=== PATIENT | male | born 1965 | race Caucasian/White ===

== ENCOUNTER 2017-12-22 00:05 | Observation (INO) | payer OTHER ==
[2017-12-22] VITALS (7 sets, daily range): BP systolic 115–147; BP diastolic 73–94; PULSE 87–99; RESP 19–21; TEMP 97.4–98.5; O2SAT 92–99
[~2017-12-22] VITALS: Ht 172.7 cm; Wt 81.4 kg
[~2017-12-22 00:05] MED LIST: ACETAMINOPHEN 325 MG TAB PO PRN; FLUMAZENIL 0.5 MG/5 ML VIAL IV PUSH PRN; LORazepam 1 MG TAB PO PRN; LORazepam 2 MG/ML VIAL IV PUSH PRN; ONDANSETRON HCL 4 MG/2 ML VIAL IVP PRN; POTASSIUM CHLORIDE 20 MEQ CONTROLLED RELEASE TAB PO ONE
[2017-12-22] MEDS: HEPARIN SODIUM - SQ 10,000 UNITS/ML VIAL SQ SCH ×4 (00:57→21:47)
[2017-12-22] MEDS: SODIUM CHLOR 0.9% 1000 ML INJ 1,000 ML IV SCH ×3 (00:57→09:59)
[2017-12-22] MEDS: SODIUM CHLORIDE 0.9% FLUSH 10 ML FLUSH IV FLUSH PRN ×2 (00:58→05:29)
[2017-12-22] MEDS: SODIUM CHLORIDE 0.9% FLUSH 10 ML FLUSH IV FLUSH SCH ×2 (08:16→19:58)
[2017-12-22 08:50] LABS: BASOPHIL % 0.3 % (0.0-2.0); EOSINOPHIL # 0.1 TH/MM3 (0-0.4); EOSINOPHIL % 1.7 % (0.0-4.0); HEMATOCRIT 32.5 % (39.0-51.0); HEMOGLOBIN 11.5 GM/DL (13.0-17.0); LYMPH % 10.6 % (9.0-44.0); LYMPHOCYTE # 0.8 TH/MM3 (1.0-4.8); MEAN CELL VOLUME 96.2 FL (80.0-100.0); MEAN CORPUSCULAR HEMOGLOBIN 34.1 PG (27.0-34.0); MEAN CORPUSCULAR HGB CONC 35.4 % (32.0-36.0); MEAN PLATELET VOLUME 9.2 FL (7.0-11.0); MONO % 9.4 % (0.0-8.0); MONOCYTE # 0.7 TH/MM3 (0-0.9); PLATELET COUNT 87 TH/MM3 (150-450); RED BLOOD COUNT 3.38 MIL/MM3 (4.50-5.90); RED CELL DISTRIBUTION WIDTH 14.8 % (11.6-17.2); WHITE BLOOD COUNT 7.6 TH/MM3 (4.0-11.0)
[2017-12-22 09:02] LABS: CHLORIDE 104 MEQ/L (98-107); SODIUM (NA) 138 MEQ/L (136-145)
[2017-12-22] MEDS: FOLIC ACID 1 MG TAB PO SCH (09:02)
[2017-12-22] MEDS: FAMOTIDINE 20 MG TAB PO SCH ×2 (09:02→19:58)
[2017-12-22] MEDS: MULTIVITAMINS/MINERALS THERAPEUTIC TAB PO SCH (09:02)
[2017-12-22] MEDS: THIAMINE HCL 100 MG TAB PO SCH (09:02)
[2017-12-22] MEDS: LORazepam 2 MG TAB PO PRN ×2 (09:02→19:58)
[2017-12-22 09:06] LABS: CALCIUM 7.8 MG/DL (8.5-10.1)
[2017-12-22 09:07] LABS: ALBUMIN 3.2 GM/DL (3.4-5.0); BICARBONATE 22.9 MEQ/L (21.0-32.0); BLOOD UREA NITROGEN 16 MG/DL (7-18); GLUCOSE,RANDOM 72 MG/DL (74-106)
[2017-12-22 09:10] LABS: ALT (GPT) 18 U/L (12-78); AST (GOT) 54 U/L (15-37); CREATININE 0.99 MG/DL (0.60-1.30); GLOMERULAR FILTRATION RATE 80 ML/MIN (>89)
[2017-12-22 09:11] LABS: TOTAL BILIRUBIN ADULT 1.4 MG/DL (0.2-1.0)
[2017-12-22 09:12] LABS: TOTAL PROTEIN 6.1 GM/DL (6.4-8.2)
[2017-12-22 09:13] LABS: ALKALINE PHOSPHATASE 109 U/L (45-117)
--- NOTE | 2017-12-22 10:57 | HHI.HP ---
[facility] No Primary Care Physician Admission Diagnosis Diagnoses: Chief Complaint: Confusion Travel History International Travel<30 Days: No Contact w/Intl Traveler <30 Da: No Traveled to Known Affected Are: No History of Present Illness This patient is a 52-year-old gentleman with a history of hypertension and chronic alcohol dependency issues. Patient was brought to the emergency room by emergency medical services after neighbors thought he was acting strangely. Patient was intoxicated with alcohol at the time. This time he is evaluated and is a rather poor historian due to his confusion however he is able to follow commands in general. He has been pulling at IV access these and his telemetry. He is quite confused relatively confused. On admission he is found to have mild rhabdomyolysis and an elevated Ciwa score for alcohol withdrawal. Patient is admitted for acute alcohol withdrawal as well as rhabdomyolysis and hypokalemia Review of Systems ROS Limitations: Intoxication, Altered Mental Status Constitutional: DENIES: Diaphoretic episodes, Fatigue, Fever, Weight gain, Weight loss, Chills, Dizziness, Change in appetite, Night Sweats Endocrine: DENIES: Heat/cold intolerance, Polydipsia, Polyuria, Polyphagia Eyes: DENIES: Blurred vision, Diplopia, Eye inflammation, Eye pain, Vision loss , Photosensitivity, Double Vision Ears, nose, mouth, throat: DENIES: Tinnitus, Hearing loss, Vertigo, Nasal discharge, Oral lesions, Throat pain, Hoarseness, Ear Pain, Running Nose, Epistaxis, Sinus Pain, Toothache, Odynophagia Respiratory: DENIES: Apneas, Cough, Snoring, Wheezing, Hemoptysis, Sputum production, Shortness of breath Cardiovascular: DENIES: Chest pain, Palpitations, Syncope, Dyspnea on Exertion , PND, Lower Extremity Edema, Orthopnea, Claudication Gastrointestinal: DENIES: Abdominal pain, Black stools, Bloody stools, Constipation, Diarrhea, Nausea, Vomiting, Difficulty Swallowing, Anorexia Genitourinary: DENIES: Sexual dysfunction, Urinary frequency, Urinary incontinence, Urgency, Hematuria, Dysuria, Nocturia, Penile Discharge, Testicular Pain, Testicular Swelling Musculoskeletal: DENIES: Joint pain, Muscle aches, Stiffness, Joint Swelling, Back pain, Neck pain Integumentary: DENIES: Abnormal pigmentation, Nail changes, Pruritus, Rash Hematologic/lymphatic: DENIES: Bruising, Lymphadenopathy Immunologic/allergic: DENIES: Eczema, Urticaria Psychiatric: DENIES: Anxiety, Confusion, Mood changes, Depression, Hallucinations, Agitation, Suicidal Ideation, Homicidal Ideation, Delusions Past Family Social History Past Medical History Alcohol dependency Hypertension Past Surgical History Right foot surgery Reported Medications Reviewed in the EMR, denies Allergies: Coded Allergies: No Known Allergies (Unverified , 12/21/17) Active Ordered Medications Reviewed in the EMR Family History Family history of hypertension Social History Patient drinks at least a pack of beer weekly Denies tobacco, lives with his family Physical Exam Vital Signs Vital Signs Date Time Temp Pulse Resp B/P (MAP) Pulse Ox O2 Delivery O2 Flow Rate FiO2 12/22/17 08:00 98.3 87 21 134/87 (103) 99 12/22/17 04:00 98.3 92 20 115/73 (87) 95 12/22/17 01:00 95 12/22/17 00:30 97.6 96 20 137/85 (102) 92 Physical Exam GENERAL: This is a well-nourished, well-developed patient, who is confused SKIN: No rashes, ecchymoses or lesions. Cool and dry. HEAD: Atraumatic. Normocephalic. No temporal or scalp tenderness. EYES: Pupils equal round and reactive. Extraocular motions intact. No scleral icterus. No injection or drainage. ENT: Nose without bleeding, purulent drainage or septal hematoma. Throat without erythema, tonsillar hypertrophy or exudate. Uvula midline. Airway patent. NECK: Trachea midline. No JVD or lymphadenopathy. Supple, nontender, no meningeal signs. CARDIOVASCULAR: Regular rate and rhythm without murmurs, gallops, or rubs. RESPIRATORY: Clear to auscultation. Breath sounds equal bilaterally. No wheezes , rales, or rhonchi. GASTROINTESTINAL: Abdomen soft, non-tender, nondistended. No hepato-splenomegaly , or palpable masses. No guarding. MUSCULOSKELETAL: Extremities without clubbing, cyanosis, or edema. No joint tenderness, effusion, or edema noted. No calf tenderness. Negative Homans sign bilaterally. NEUROLOGICAL: Awake and alert. Cranial nerves II through XII intact. Motor and sensory grossly within normal limits. Five out of 5 muscle strength in all muscle groups. Normal speech. Laboratory Laboratory Tests Test 12/22/17 08:10 White Blood Count 7.6 Red Blood Count 3.38 Hemoglobin 11.5 Hematocrit 32.5 Mean Corpuscular Volume 96.2 Mean Corpuscular Hemoglobin 34.1 Mean Corpuscular Hemoglobin Concent 35.4 Red Cell Distribution Width 14.8 Platelet Count 87 Mean Platelet Volume 9.2 Neutrophils (%) (Auto) 78.0 Lymphocytes (%) (Auto) 10.6 Monocytes (%) (Auto) 9.4 Eosinophils (%) (Auto) 1.7 Basophils (%) (Auto) 0.3 Neutrophils # (Auto) 6.0 Lymphocytes # (Auto) 0.8 Monocytes # (Auto) 0.7 Eosinophils # (Auto) 0.1 Basophils # (Auto) 0.0 CBC Comment AUTO DIFF Differential Comment AUTO DIFF CONFIRMED Platelet Estimate LOW Platelet Morphology Comment NORMAL Blood Urea Nitrogen 16 Creatinine 0.99 Random Glucose 72 Total Protein 6.1 Albumin 3.2 Calcium Level 7.8 Alkaline Phosphatase 109 Aspartate Amino Transf (AST/SGOT) 54 Alanine Aminotransferase (ALT/SGPT) 18 Total Bilirubin 1.4 Sodium Level 138 Potassium Level 3.0 Chloride Level 104 Carbon Dioxide Level 22.9 Anion Gap 11 Estimat Glomerular Filtration Rate 80 Total Creatine Kinase 587 Creatine Kinase MB 5.1 Creatine Kinase MB % 0.9 Result Diagram: 12/22/1780912/22/17809 Course Patient transferred from the [facility] emergency room Septic Shock Reassessment Septic shock perfusion: reassessment completed Caprini VTE Risk Assessment Caprini VTE Risk Assessment: Mod/High Risk (score >= 2) Caprini Risk Assessment Model Point Value = 1 Point Value = 2 Point Value = 3 Point Value = 5 Age 41-60 Minor surgery BMI > 25 kg/m2 Swollen legs Varicose veins or History of unexplained or recurrent spontaneous Oral contraceptives or hormone replacement Sepsis (< 1 month) Serious lung disease, including pneumonia (< 1 month) Abnormal pulmonary function Acute myocardial infarction Congestive heart failure (< 1 month) History of inflammatory bowel disease Medical patient at bed rest Age 61-74 Arthroscopic surgery Major open surgery (> 45 min) Laparoscopic surgery (> 45 min) Malignancy Confined to bed (> 72 hours) Immobilizing plaster cast Central venous access Age >= 75 History of VTE Family history of VTE Factor V Leiden Prothrombin [id number] Lupus anticoagulant Anticardiolipin antibodies Elevated serum homocysteine Heparin-induced thrombocytopenia Other congenital or acquired thrombophilia Stroke (< 1 month) Elective arthroplasty Hip, pelvis, or leg fracture Acute spinal cord injury (< 1 month) Prophylaxis Regimen Total Risk Factor Score Risk Level Prophylaxis Regimen 0-1 Low Early ambulation 2 Moderate Order ONE of the following: *Sequential Compression Device (SCD) *Heparin 5000 units SQ BID 3-4 Higher Order ONE of the following medications: *Heparin 5000 units SQ TID *Enoxaparin/Lovenox 40 mg SQ daily (WT < 150 kg, CrCl > 30 mL/min) *Enoxaparin/Lovenox 30 mg SQ daily (WT < 150 kg, CrCl > 10-29 mL/min) *Enoxaparin/Lovenox 30 mg SQ BID (WT < 150 kg, CrCl > 30 mL/min) AND/OR *Sequential Compression Device (SCD) 5 or more Highest Order ONE of the following medications: *Heparin 5000 units SQ TID (Preferred with Epidurals) *Enoxaparin/Lovenox 40 mg SQ daily (WT < 150 kg, CrCl > 30 mL/min) *Enoxaparin/Lovenox 30 mg SQ daily (WT < 150 kg, CrCl > 10-29 mL/min) *Enoxaparin/Lovenox 30 mg SQ BID (WT < 150 kg, CrCl > 30 mL/min) AND *Sequential Compression Device (SCD) Assessment and Plan Problem List: (1) EtOH dependence ICD Code: F10.20 - Alcohol dependence, uncomplicated Plan: Patient has a see was score of 13. Continue with Ativan and Librium Follow-up clinically (2) Rhabdomyolysis ICD Code: M62.82 - Rhabdomyolysis Plan: Improved with IV hydration Encourage oral intake (3) Hypokalemia ICD Code: E87.6 - Hypokalemia Plan: Follow-up magnesium Continue to replace electrolytes Physician Certification 2 Midnight Certification Type: Admission for Inpatient Services Order for Inpatient Services The services are ordered in accordance with Medicare regulations or non- Medicare payer requirements, as applicable. In the case of services not specified as inpatient-only, they are appropriately provided as inpatient services in accordance with the 2-midnight benchmark. Estimated LOS (days): 3 3 days is the estimated time the patient will need to remain in the hospital, assuming treatment plan goals are met and no additional complications. Post-Hospital Plan: Home (3) Zuly Tsang MD December 22, 2017 10:57
[2017-12-22] MEDS: POTASSIUM CHLORIDE 10 MEQ CONTROLLED RELEASE TAB PO SCH (12:11)
[2017-12-23] VITALS: BP 157/88; PULSE 77; RESP 20; TEMP 98.8; O2SAT 98
[2017-12-23] MEDS: HEPARIN SODIUM - SQ 10,000 UNITS/ML VIAL SQ SCH (05:13)
[2017-12-23 05:19] LABS: CHLORIDE 104 MEQ/L (98-107); SODIUM (NA) 140 MEQ/L (136-145)
[2017-12-23 05:25] LABS: ALBUMIN 3.2 GM/DL (3.4-5.0); BLOOD UREA NITROGEN 9 MG/DL (7-18); CALCIUM 8.2 MG/DL (8.5-10.1); GLUCOSE,RANDOM 94 MG/DL (74-106)
[2017-12-23 05:28] LABS: ALT (GPT) 23 U/L (12-78); AST (GOT) 48 U/L (15-37); CREATININE 0.72 MG/DL (0.60-1.30); GLOMERULAR FILTRATION RATE 115 ML/MIN (>89)
[2017-12-23 05:29] LABS: TOTAL BILIRUBIN ADULT 0.8 MG/DL (0.2-1.0); TOTAL PROTEIN 6.5 GM/DL (6.4-8.2)
[2017-12-23 05:31] LABS: ALKALINE PHOSPHATASE 114 U/L (45-117)
[2017-12-23] MEDS ORDERED: cloNIDine HCL 0.1 MG TAB PO PRN (07:45)
[2017-12-23 08:00] VITALS: BP 180/100; PULSE 77; RESP 20; TEMP 97.6; O2SAT 95
[2017-12-23] MEDS: MULTIVITAMINS/MINERALS THERAPEUTIC TAB PO SCH (08:19)
[2017-12-23] MEDS: POTASSIUM CHLORIDE 10 MEQ CONTROLLED RELEASE TAB PO SCH (08:19)
[2017-12-23] MEDS: FAMOTIDINE 20 MG TAB PO SCH (08:19)
[2017-12-23] MEDS: THIAMINE HCL 100 MG TAB PO SCH (08:20)
[2017-12-23] MEDS: FOLIC ACID 1 MG TAB PO SCH (08:20)
[2017-12-23] MEDS: SODIUM CHLORIDE 0.9% FLUSH 10 ML FLUSH IV FLUSH SCH (08:21)
[2017-12-23] MEDS ORDERED: METOPROLOL TARTRATE 25 MG TAB PO SCH (09:30)
--- NOTE | 2017-12-23 11:33 | HHI.DCPOC ---
Discharge Care Plan Diagnosis: (1) EtOH dependence (2) Rhabdomyolysis (3) Hypokalemia Goals to Promote Your Health * To prevent worsening of your condition and complications * To maintain your health at the optimal level Directions to Meet Your Goals Take your medications as prescribed Follow your dietary instruction Follow activity as directed Keep your appointments as scheduled Take your immunizations and boosters as scheduled If your symptoms worsen call your PCP, if no PCP go to Urgent Care Center or Emergency Room Smoking is Dangerous to Your Health. Avoid second hand smoke Call the 24-hour hour crisis hotline for domestic abuse at Zuly Tsang MD December 23, 2017 11:32
[2017-12-23] MEDS ORDERED: THERM PO (11:34)
[2017-12-23] MEDS ORDERED: METO25TA3 PO (11:34)
--- NOTE | 2017-12-23 11:35 | HHI.DS ---
Discharge Summary Admission Date December 22, 2017 at 00:15 Discharge Date: December 23, 2017 Admitting Diagnosis (1) EtOH dependence ICD Code: F10.20 - Alcohol dependence, uncomplicated (2) Rhabdomyolysis ICD Code: M62.82 - Rhabdomyolysis (3) Hypokalemia ICD Code: E87.6 - Hypokalemia Procedures none Brief History - From Admission This patient is a 52-year-old gentleman with a history of hypertension and chronic alcohol dependency issues. Patient was brought to the emergency room by emergency medical services after neighbors thought he was acting strangely. Patient was intoxicated with alcohol at the time. This time he is evaluated and is a rather poor historian due to his confusion however he is able to follow commands in general. He has been pulling at IV access these and his telemetry. He is quite confused relatively confused. On admission he is found to have mild rhabdomyolysis and an elevated Ciwa score for alcohol withdrawal. Patient is admitted for acute alcohol withdrawal as well as rhabdomyolysis and hypokalemia CBC/BMP: 12/22/17 0810 12/23/17 0425 Significant Findings Laboratory Tests Test 12/22/17 08:10 12/22/17 18:45 12/23/17 04:25 Red Blood Count 3.38 MIL/MM3 (4.50-5.90) Hemoglobin 11.5 GM/DL (13.0-17.0) Hematocrit 32.5 % (39.0-51.0) Mean Corpuscular Hemoglobin 34.1 PG (27.0-34.0) Platelet Count 87 TH/MM3 (150-450) Neutrophils (%) (Auto) 78.0 % (16.0-70.0) Monocytes (%) (Auto) 9.4 % (0.0-8.0) Lymphocytes # (Auto) 0.8 TH/MM3 (1.0-4.8) Platelet Estimate LOW (NORMAL) Random Glucose 72 MG/DL (74-106) Total Protein 6.1 GM/DL (6.4-8.2) Albumin 3.2 GM/DL (3.4-5.0) 3.2 GM/DL (3.4-5.0) Calcium Level 7.8 MG/DL (8.5-10.1) 8.2 MG/DL (8.5-10.1) Aspartate Amino Transf (AST/SGOT) 54 U/L (15-37) 48 U/L (15-37) Total Bilirubin 1.4 MG/DL (0.2-1.0) Potassium Level 3.0 MEQ/L (3.5-5.1) 3.0 MEQ/L (3.5-5.1) Estimat Glomerular Filtration Rate 80 ML/MIN (>89) Total Creatine Kinase 587 U/L (39-308) Creatine Kinase MB 5.1 NG/ML (0.5-3.6) Ammonia 35 MCMOL/L (11-32) PE at Discharge GENERAL: This is a well-nourished, well-developed patient, in no apparent distress. CARDIOVASCULAR: Regular rate and rhythm without murmurs, gallops, or rubs. RESPIRATORY: Clear to auscultation. Breath sounds equal bilaterally. No wheezes , rales, or rhonchi. GASTROINTESTINAL: Abdomen soft, non-tender, nondistended. Normal active bowel sounds MUSCULOSKELETAL: Extremities without clubbing, cyanosis, or edema. NEURO: Alert & Oriented x4 to person, place, time, situation. Moves all ext x4 Pt update on day of discharge Patient doing much better today. Ambulatory. Alert and oriented and clearheaded. Discharge plans discussed with patient and he is agreeable Hospital Course This patient is a 52-year-old gentleman came in with some evidence of acute alcohol intoxication and withdrawal subsequently. The patient then continued to have elevated blood pressures and encephalopathic issues which treated to improve. He was hypertensive and had recently stopped his medications due to poor adherence issues. His potassium was replaced. Patient is alert and oriented and discharged to follow-up with the ME services Pt Condition on Discharge: Good Discharge Disposition: Discharge Home Discharge Time: <= 30 minutes Discharge Instructions DIET: Follow Instructions for: As Tolerated, No Restrictions Activities you can perform: Regular-No Restrictions Follow up Referrals: PCP Follow-up - [facility] New Medications: Metoprolol Tartrate (Metoprolol Tartrate) 25 Mg Tab 25 MG PO Q12HR for Blood Pressure Management, #62 TAB Multiple Vitamins W/ Minerals (Thera M Plus) 1 Tab 1 TAB PO DAILY for vitamin, #31 TAB Zuly Tsang MD December 23, 2017 11:35
[2017-12-23 12:00] VITALS: BP 162/102; PULSE 85; RESP 20; TEMP 98.2; O2SAT 100
== END 2017-12-23 13:21 | disposition home or self-care (01) ==
LOC: PHEDDLT 00:05 → PH3A 00:15
PROVIDERS: ADMIT Hospitalist; ATTEND Hospitalist
DX: M62.82 Rhabdomyolysis (principal); F10.239 Alcohol dependence with withdrawal, unspecified; R41.0 Disorientation, unspecified; E87.6 Hypokalemia; I10 Essential (primary) hypertension; R79.89 Other specified abnormal findings of blood chemistry
CPT/HCPCS: 70450; 71045; 80053; 80307; 81001; 82140; 82550; 82552; 82948; 83735; 84484; 85025; 85610; 85730; 93005; 96361; 96372; 96374; 96376; 99285; G0378; J1644; J2060; J7030